=== PATIENT | female | born 1990 | race Two or more races ===

== ENCOUNTER 2020-07-28 17:48 | Observation (INO) ==
[2020-07-28] MEDS ORDERED: SODIUM CHLORIDE 0.9% 1000ML 1,000 ML IV ONE (18:15)
--- NOTE | 2020-07-28 18:29 | Emergency Department Note ---
History of Present Illness General Chief complaint: Vaginal Bleeding Stated complaint: SOB, LOW HEMOGLOBIN, REF BY [facility] Time Seen by Provider: 07/28/20 18:04 History of Present Illness Provider complaint: Vaginal bleeding Onset (ago): week(s) (6) Location: genitals Current Pain Intensity: 0 Relieved By: + none Exacerbated By: + none Associated symptoms: + shortness of breath, + syncope and + weakness; no chest pain, no cough, no fever/chills and no headaches 29-year-old female presents emergency department for vaginal bleeding. Patient states she has been having vaginal bleeding for the last 6 weeks. She reports increased lethargy and shortness of breath. Patient states she went to [facility] today and had blood work done which showed a hemoglobin of 7 and she was told to come to the emergency department for transfusion and evaluation. Patient does report increased lethargy and states she did blackout a few weeks ago because she was so tired. No chest pain. Patient is not on any blood thinners. Patient states she recently took a test and was found to be not . 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 Home Medications Medication Instructions Recorded Confirmed Type folic acid 0.4 mg PO DAILY 07/28/20 07/28/20 History Allergies Allergy/AdvReac Type Severity Reaction Status Date / Time No Known Allergies Allergy Unverified 07/28/20 20:57 Past Med/Surg History Medical History (Updated 07/29/20 @ 00:59 by Akshat Graham) Beta thalassemia minor No pertinent family history Surgical History (Updated 07/28/20 @ 21:21 by Suyapa León MD) H/O oral surgery Social History (Updated 07/28/20 @ 21:21 by Suyapa León MD) Smoking Status: Never smoker Second Hand Exposure: No; Hx Alcohol Use: No Hx Substance Use: No Preferred Language: Greek Communication Ability: Effective Vice President Safety Required: No marital status: Current Living Situation: Spouse current occupational status: student current occupation: Grad student, civil engineering Feels Safe at Home: Yes Assistive Devices: None Review of Systems A total of 10 systems reviewed and were otherwise negative Physical Exam Vital Signs Vital Signs - 24 hr 07/28/20 17:50 07/28/20 20:51 Temperature 36.0 C L Temperature Source Temporal Artery Scan Pulse Rate 91 H Pulse Rate [Right Finger] 95 H Respiratory Rate 18 14 Blood Pressure 129/76 Blood Pressure [Right Arm] 151/82 H Blood Pressure Mean 93 Blood Pressure Mean [Right Arm] 105 Pulse Oximetry 100 100 Oxygen Delivery Method Room Air Room Air Sepsis Recent Fever Within 48 Hours No Sepsis New/Unexplained Change in Mental Status N/A Sepsis Action Taken by Nursing No Action Required Physical Exam GENERAL: She is oriented to person, place, and time. She appears well-developed and well-nourished. She does not appear distressed. HENT: Exam performed. -Head: Normocephalic and atraumatic. -Right Ear: External ear normal. No mastoid tenderness. -Left Ear: External ear normal. No mastoid tenderness. -Mouth/Throat: The oropharynx is clear and moist. No trismus in the jaw. No dental abscesses or uvula swelling. No oropharyngeal exudate or tonsillar abscesses. EYES: Conjunctivae and EOM are normal. Pupils are equal, round, and reactive to light. Right eye exhibits no discharge. Left eye exhibits no discharge. No scleral icterus. NECK: Normal range of motion. Neck supple. No JVD present. No spinous process tenderness present. No carotid bruit present. No rigidity. No tracheal deviation and normal range of motion present. No Brudzinski's sign and no Kernig's sign noted. CV: Normal rate, regular rhythm, normal heart sounds and intact distal pulses. There is no peripheral edema. Palpable radial pulses bue. PULM/CHEST: Effort normal and breath sounds normal. No respiratory distress. No stridor. She has no wheezes. She has no rales. -Chest Wall: She exhibits no tenderness. ABD: The abdomen is soft. Bowel sounds are normal. She has no distension. No mass is present. There is no tenderness. There is no rebound, no guarding, no Hillman's sign and no tenderness at McBurney's point. Rovsig negative MUSC/SKEL: Normal range of motion. There is no peripheral edema, tenderness or deformity. LYMPH: No cervical adenopathy. NEURO: She is alert and oriented to person, place, and time. She has normal strength. No cranial nerve deficit or sensory deficit. Coordination and gait normal. GCS eye subscore is 4. GCS verbal subscore is 5. GCS motor subscore is 6. Cerebellar tests wnl. SKIN: Skin is warm and dry. She is not diaphoretic. PSYCH: She has a normal mood and affect. Behavior is normal. Judgment and thought content normal. Course Course 1803: The patient was evaluated in room B9. A complete history and physical exam was performed Cardiac monitoring: An order was placed for continuous cardiac monitoring. The monitor shows a rate of 90 with sinus rhythm 1999: Vital signs stable. Patient's hemoglobin 6.9. Patient was consented for 2 units packed red blood cells to be transfused. Lab work is otherwise within normal limits. Ultrasound showed no abnormalities on transabdominal view. Patient was unable to tolerate endovaginal ultrasound. I did attempt to do a pelvic exam with female nursing concrete precast moulder Stacy. The patient did have clots coming out of her vagina and dried blood around her vulvar area. Patient was unable to tolerate speculum exam and started screaming in pain. We decided to defer the ultrasound for MACHINE CANDLE MOLDER to complete as the patient was in severe pain wi speculum exam. I did discuss the case with on-call MACHINE CANDLE MOLDER Dr. León who states she will be down to evaluate the patient. 2038: Vital signs stable. Patient was evaluated by Dr. León and myself and we both explained to patient that would be in her best interest to be admitted to the hospital to continue transfusion and recheck hemoglobin in the morning. Patient is in agreement. Administered Medications Medroxyprogesterone Acetate (Medroxyprogesterone Acetate 10 Mg Tab) 20 mg PO TID PIERRE Stop: 08/27/20 21:49 Last Admin: 07/28/20 22:47 Dose: 20 mg Documented by: [id number] Discontinued Medications Sodium Chloride (Nss 1000ml) 1,000 mls @ 999 mls/hr IV .Q1H1M ONE Stop: 07/28/20 19:15 Last Infusion: 07/28/20 19:23 Dose: 0 mls/hr Documented by: [id number] Admin: 07/28/20 18:29 Dose: 999 mls/hr Documented by: [id number] Sodium Chloride (Nss 1000ml) 500 mls @ 999 mls/hr IV .Q31M ONE Stop: 07/28/20 20:29 Last Infusion: 07/28/20 21:47 Dose: 0 mls/hr Documented by: [id number] Admin: 07/28/20 20:53 Dose: 999 mls/hr Documented by: [id number] Critical Care Time Critical Care Time: Yes Total Critical Care Time: 59 I have personally spent greater than 59 minutes of critical care time in the direct management of this patient. This includes bedside care, interpretation of diagnostic studies, and testing, discussion with consultants, patient, and family members, and other required patient management activities. This 59 minutes is in excess of all separately billable procedures. Medical Decision Making Laboratory Data Result diagrams: 07/28/20 18:30 07/28/20 18:30 Lab Results 07/28/20 07/28/20 07/28/20 Range/Units 18:30 18:30 18:30 WBC 12.43 H (4.8-10.8) K/uL RBC 3.73 L (4.2-5.4) M/uL Hgb 6.9 L* (12.0-16.0) g/dL Hct 23.5 L (37-47) % MCV 63.0 L (80-100) fL MCH 18.5 L (25-34) pg MCHC 29.4 L (32-36) g/dL RDW Std Deviation 41.8 (36.4-46.3) fL RDW Coeff of Kerri 18.2 H (11.5-14.5) % Plt Count 425 H (130-400) K/uL MPV 9.3 (7.4-10.4) fL Immature Gran % (Auto) 0.4 % Neut % (Auto) 59.4 % Lymph % (Auto) 33.2 % [place] % (Auto) 5.9 % Eos % (Auto) 0.9 % Baso % (Auto) 0.2 % Neut # (Auto) 7.39 H (1.4-6.5) K/uL Lymph # (Auto) 4.13 H (1.2-3.4) K/uL [place] # (Auto) 0.73 H (0.11-0.59) K/uL Eos # (Auto) 0.11 (0-0.5) K/uL Baso # (Auto) 0.02 (0-0.2) K/uL Immature Gran # (Auto) 0.05 H (0.00-0.02) K/uL Absolute Nucleated RBC 0.05 H (0-0) K/uL Nucleated RBC % (auto) 0.4 % Polychromasia 1+ Hypochromasia Present Microcytosis Present Target Cells 1+ PT 10.0 (9.0-12.0) Seconds INR 1.0 (0.9-1.1) APTT 21.9 (21.0-31.0) Seconds PTT Ratio 0.8 Sodium 136 (136-145) mmol/L Potassium 4.0 (3.5-5.1) mmol/L Chloride 107 (98-107) mmol/L Carbon Dioxide 25 (21-32) mmol/L Anion Gap 4.0 (3-11) BUN 13 (7-18) mg/dl Creatinine 0.84 (0.6-1.2) mg/dl Est Cr Clr Drug Dosing 105.5 ml/min Est GFR ( Amer) 109.6 Est GFR (Non-Af Amer) 94.6 BUN/Creatinine Ratio 15.8 (10-20) Glucose 91 (70-99) mg/dl Calcium 9.0 (8.5-10.1) mg/dl HCG, Qual (Negative) COVID-19 Eval Order SARS-CoV-2 (PCR) (Negative) Influenza Type A (PCR) (Neg) Influenza Type B (PCR) (Neg) RSV (RT-PCR) (Neg) Blood Type Blood Type Recheck Antibody Screen Crossmatch 07/28/20 07/28/20 07/28/20 Range/Units 18:30 18:30 20:40 WBC (4.8-10.8) K/uL RBC (4.2-5.4) M/uL Hgb (12.0-16.0) g/dL Hct (37-47) % MCV (80-100) fL MCH (25-34) pg MCHC (32-36) g/dL RDW Std Deviation (36.4-46.3) fL RDW Coeff of Kerri (11.5-14.5) % Plt Count (130-400) K/uL MPV (7.4-10.4) fL Immature Gran % (Auto) % Neut % (Auto) % Lymph % (Auto) % [place] % (Auto) % Eos % (Auto) % Baso % (Auto) % Neut # (Auto) (1.4-6.5) K/uL Lymph # (Auto) (1.2-3.4) K/uL [place] # (Auto) (0.11-0.59) K/uL Eos # (Auto) (0-0.5) K/uL Baso # (Auto) (0-0.2) K/uL Immature Gran # (Auto) (0.00-0.02) K/uL Absolute Nucleated RBC (0-0) K/uL Nucleated RBC % (auto) % Polychromasia Hypochromasia Microcytosis Target Cells PT (9.0-12.0) Seconds INR (0.9-1.1) APTT (21.0-31.0) Seconds PTT Ratio Sodium (136-145) mmol/L Potassium (3.5-5.1) mmol/L Chloride (98-107) mmol/L Carbon Dioxide (21-32) mmol/L Anion Gap (3-11) BUN (7-18) mg/dl Creatinine (0.6-1.2) mg/dl Est Cr Clr Drug Dosing ml/min Est GFR ( Amer) Est GFR (Non-Af Amer) BUN/Creatinine Ratio (10-20) Glucose (70-99) mg/dl Calcium (8.5-10.1) mg/dl HCG, Qual Negative (Negative) COVID-19 Eval Order SARS-CoV-2 (PCR) (Negative) Influenza Type A (PCR) (Neg) Influenza Type B (PCR) (Neg) RSV (RT-PCR) (Neg) Blood Type B Positive Blood Type Recheck B Positive Antibody Screen NEGATIVE Crossmatch See Detail 07/28/20 07/28/20 Range/Units 20:51 20:51 WBC (4.8-10.8) K/uL RBC (4.2-5.4) M/uL Hgb (12.0-16.0) g/dL Hct (37-47) % MCV (80-100) fL MCH (25-34) pg MCHC (32-36) g/dL RDW Std Deviation (36.4-46.3) fL RDW Coeff of Kerri (11.5-14.5) % Plt Count (130-400) K/uL MPV (7.4-10.4) fL Immature Gran % (Auto) % Neut % (Auto) % Lymph % (Auto) % [place] % (Auto) % Eos % (Auto) % Baso % (Auto) % Neut # (Auto) (1.4-6.5) K/uL Lymph # (Auto) (1.2-3.4) K/uL [place] # (Auto) (0.11-0.59) K/uL Eos # (Auto) (0-0.5) K/uL Baso # (Auto) (0-0.2) K/uL Immature Gran # (Auto) (0.00-0.02) K/uL Absolute Nucleated RBC (0-0) K/uL Nucleated RBC % (auto) % Polychromasia Hypochromasia Microcytosis Target Cells PT (9.0-12.0) Seconds INR (0.9-1.1) APTT (21.0-31.0) Seconds PTT Ratio Sodium (136-145) mmol/L Potassium (3.5-5.1) mmol/L Chloride (98-107) mmol/L Carbon Dioxide (21-32) mmol/L Anion Gap (3-11) BUN (7-18) mg/dl Creatinine (0.6-1.2) mg/dl Est Cr Clr Drug Dosing ml/min Est GFR ( Amer) Est GFR (Non-Af Amer) BUN/Creatinine Ratio (10-20) Glucose (70-99) mg/dl Calcium (8.5-10.1) mg/dl HCG, Qual (Negative) COVID-19 Eval Order [facility]FluRsv at [facility] SARS-CoV-2 (PCR) NEGATIVE (Negative) Influenza Type A (PCR) Negative (Neg) Influenza Type B (PCR) Negative (Neg) RSV (RT-PCR) Negative (Neg) Blood Type Blood Type Recheck Antibody Screen Crossmatch Imaging Data Radiologist's Impression: EXAMINATION: PELVIC ULTRASOUND CLINICAL HISTORY: vaginal bleeding COMPARISON STUDY: FINDINGS: Transabdominal scanning was performed. The patient was unable to tolerate endovaginal scanning The uterus measured 6.9 x 3.6 x 4.7 cm. The endometrial stripe measured 8 mm. The right ovary measured 3 7 x 16 x 19 mm. The left ovary measured 31 x 19 x 26 mm. There was no evidence of pathologic free pelvic fluid. IMPRESSION: 1. Normal transabdominal pelvic ultrasound. ACT 112: Negative or not required by law. Electronically signed by: Subhahs Rai M.D. 07/28/2020 7:41 PM Dictated: 07/28/201939Transcribed: 07/28/201939 ECG Data Indication: + other (arrythmia) Rate (beats per minute): 93 Rhythm: + normal sinus ECG Intervals/blocks: + Normal QRS, + Normal OH and + Normal QT-c ECG ST segments: + Normal ST segments [facility] Narrative 1804: The patient was evaluated in room B9. A complete history and physical exam was performed Cardiac monitoring: An order was placed for continuous cardiac monitoring. The monitor shows a rate of 90 with sinus rhythm 1999: Vital signs stable. Patient's hemoglobin 6.9. Patient was consented for 2 units packed red blood cells to be transfused. Lab work is otherwise within normal limits. Ultrasound showed no abnormalities on transabdominal view. Patient was unable to tolerate endovaginal ultrasound. I did attempt to do a pelvic exam with female nursing concrete precast moulder Stacy. The patient did have clots coming out of her vagina and dried blood around her vulvar area. Patient was un able to tolerate speculum exam and started screaming in pain. We decided to defer the ultrasound for MACHINE CANDLE MOLDER to complete as the patient was in severe pain with speculum exam. I did discuss the case with on-call MACHINE CANDLE MOLDER Dr. León who states she will be down to evaluate the patient. 2038: Vital signs stable. Patient was evaluated by Dr. León and myself and we both explained to patient that would be in her best interest to be admitted to the hospital to continue transfusion and recheck hemoglobin in the morning. Patient is in agreement. Impression & Plan Vaginal bleeding, Anemia Discharge Plan Visit Data Chief Complaint: Vaginal Bleeding Stated Complaint: SOB, LOW HEMOGLOBIN, REF BY [facility] ED Provider: Akshat Graham Discharge Problem: Vaginal bleeding, Anemia Patient Disposition: Admitted As Inpatient Discharge Instructions Interventions: ED Discharge Assessment Last Done: 07/28/20 22:03 Discharge Problem: Anemia Qualifiers: Iron deficiency anemia type: chronic blood loss
[2020-07-28 18:53] LABS: Partial Thromboplastin Ratio 0.8; Partial Thromboplastin Time 21.9 Seconds (21.0-31.0)
[2020-07-28 18:57] LABS: BUN Creatinine Ratio 15.8 (10-20); Creatinine Clr Calc Pharmacy 105.5 ml/min; Est GFR (African American) 109.6; Est GFR (Non-African American) 94.6; Hematocrit (blood only) 23.5 % (37-47); Hemoglobin 6.9 g/dL (12.0-16.0); Mean Corpuscular Hemoglobin 18.5 pg (25-34); Mean Corpuscular Hgb Conc 29.4 g/dL (32-36); Mean Platelet Volume 9.3 fL (7.4-10.4); Nucleated RBC # (auto) 0.05 K/uL (0-0); Nucleated RBC % (auto) 0.4 %; Platelet Count 425 K/uL (130-400); RDW Coefficient of Variation 18.2 % (11.5-14.5); RDW Standard Deviation 41.8 fL (36.4-46.3); Red Blood Count 3.73 M/uL (4.2-5.4); White Blood Count 12.43 K/uL (4.8-10.8)
[2020-07-28] MEDS ORDERED: SODIUM CHLORIDE 0.9% 250 ML IV PRN (18:59)
[2020-07-28 19:01] LABS: Basophils # (auto) 0.02 K/uL (0-0.2); Basophils % (auto) 0.2 %; Eosinophils # (auto) 0.11 K/uL (0-0.5); Eosinophils % (auto) 0.9 %; Hypochromasia Present; Immature Granulocytes # (auto) 0.05 K/uL (0.00-0.02); Immature Granulocytes % (auto) 0.4 %; Lymphocytes # (auto) 4.13 K/uL (1.2-3.4); Lymphocytes % (auto) 33.2 %; Microcytosis Present; Monocytes # (auto) 0.73 K/uL (0.11-0.59); Monocytes % (auto) 5.9 %; Neutrophils # (auto) 7.39 K/uL (1.4-6.5); Neutrophils % (auto) 59.4 %; Polychromasia 1+; Target Cells 1+
--- NOTE | 2020-07-28 19:43 | Ultrasound Report ---
EXAMINATION: PELVIC ULTRASOUND CLINICAL HISTORY: vaginal bleeding COMPARISON STUDY: FINDINGS: Transabdominal scanning was performed. The patient was unable to tolerate endovaginal scanning The uterus measured 6.9 x 3.6 x 4.7 cm. The endometrial stripe measured 8 mm. The right ovary measured 3 7 x 16 x 19 mm. The left ovary measured 31 x 19 x 26 mm. There was no evidence of pathologic free pelvic fluid. IMPRESSION: 1. Normal transabdominal pelvic ultrasound. ACT 112: Negative or not required by law. Electronically signed by: Subhash Rai M.D. 07/28/2020 7:41 PM
[2020-07-28] MEDS ORDERED: SODIUM CHLORIDE 0.9% 1000ML 500 ML IV ONE (19:59)
[2020-07-28 20:39] LABS: Pregnancy Test, Serum Negative (Negative)
--- NOTE | 2020-07-28 21:30 | History & Physical Report ---
Date of Service July 28, 2020 Assessment & Plan (1) Vaginal bleedin29 y/o G0 admitted for observation for acute blood loss anemia secondary to vaginal bleeding, likely anovulatory -VSS -Anemia - 2u pRBC initiated by ED, will continue and repeat CBC in AM to ensure bleeding not significantly worsening. Discussed provera 20mg TID to try to improve vaginal bleeding, pt amenable so will start now. Pt notes that she is planning on following up with [facility] for her coding team lead care. Will keep NPO overnight, IVF in the meantime. Likely able to be d/c'd home in the morning as long CBC is stable. Exam not indicative of acute intervention currently -Ample time given for questions, answered to her apparent satisfaction History of Present Illness Chief Complaint: Anemia, Vaginal bleeding Primary Care Provider: [facility] 29 y/o G0 w/ LMP 06/20 presented to the ED earlier this evening as referral from [facility]. 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 Prior to 6 mo ago, noted q40d x 6d normal periods, normal bleeding. Over last 6 months, have become more irregular. She did not have period November and December, had month long period in January. No period February, did a provera withdrawal in March and had period then. Spotting at end of May, then began bleeding 06/20 and has not stopped since then. The periods are heavier now than before, at its heaviest is changing regular pad q3-4 hrs. Now it is improved to q5-6 hours. This past Sunday, she had an episode where she felt like the world went black and and TAYLOR. Denies lightheadedness, dizziness. Does note some SOB w/ activity, however this is actually chronic for her as she has beta thalassemia minor and normal has H/H of 9-10. This has never happened before. Given these symptoms, saw PROCESS CAMERA OPERATOR at [facility] today where they did labs and her Hemoglobin was 7, preg test was negative and was instructed to come to the ER. In the ER, pt continues to deny lightheadedness, dizziness, chest pain, SOB. H/H was stable from reported prior lab, pelvic US was normal however was only abdominal due to poor pt tolerance. Past CHANNEL SALES DIRECTOR Hx: G0 periods as described above denies hx STI Unsure if ever had pap, but states she has seen few gyns in [place] before Allergies Allergy/AdvReac Type Severity Reaction Status Date / Time No Known Allergies Allergy Unverified 07/28/20 20:57 Home Medications Medication Instructions Recorded Confirmed Type folic acid 0.4 mg PO DAILY 07/28/20 07/28/20 History Patient History Medical History (Updated 07/28/20 @ 21:24 by Suyapa León MD) Beta thalassemia minor No pertinent family history Surgical History (Updated 07/28/20 @ 21:21 by Suyapa León MD) H/O oral surgery Social History (Updated 07/28/20 @ 21:21 by Suyapa León MD) Smoking Status: Never smoker Hx Alcohol Use: No Hx Substance Use: No Preferred Language: Bermudian marital status: current occupational status: student current occupation: Grad student, civil engineering Feels Safe at Home: Yes Review of Systems All systems reviewed & are unremarkable except as noted in HPI & below Physical Exam Constitutional: WD/WN, vitals as above Respiratory: normal respiratory effort; no respiratory distress and no labored breathing Gastrointestinal (Abdomen): Inspection/Auscultation: abdomen normal to inspection; abdomen not distended Percussion/Palpation: abdomen soft; abdomen nontender, no guarding and abdomen not rigid Psychiatric: A+Ox3, euthymic affect Genitourinary: Normal external genitalia Vaginal mucosa wnl Cervix visualized w/o lesions or masses, small amount of blood noted coming out of the os w/ valsalva Uterus nontender on exam, but limited by pt tolerance Results & Data ([facility]) Vital Signs (Past 12 Hours) Vital Signs Temp Pulse Pulse Resp BP BP Pulse Ox 07/28/20 20:51 95 H 14 151/82 H 100 07/28/20 17:50 96.8 F L 91 H 18 129/76 100 Laboratory Results 07/28/20 07/28/20 07/28/20 Range/Units 20:51 20:51 20:40 WBC (4.8-10.8) K/uL RBC (4.2-5.4) M/uL Hgb (12.0-16.0) g/dL Hct (37-47) % MCV (80-100) fL MCH (25-34) pg MCHC (32-36) g/dL RDW Std Deviation (36.4-46.3) fL RDW Coeff of Kerri (11.5-14.5) % Plt Count (130-400) K/uL MPV (7.4-10.4) fL Immature Gran % (Auto) % Neut % (Auto) % Lymph % (Auto) % [place] % (Auto) % Eos % (Auto) % Baso % (Auto) % Neut # (Auto) (1.4-6.5) K/uL Lymph # (Auto) (1.2-3.4) K/uL [place] # (Auto) (0.11-0.59) K/uL Eos # (Auto) (0-0.5) K/uL Baso # (Auto) (0-0.2) K/uL Immature Gran # (Auto) (0.00-0.02) K/uL Absolute Nucleated RBC (0-0) K/uL Nucleated RBC % (auto) % Polychromasia Hypochromasia Microcytosis Target Cells PT (9.0-12.0) Seconds INR (0.9-1.1) APTT (21.0-31.0) Seconds PTT Ratio Sodium (136-145) mmol/L Potassium (3.5-5.1) mmol/L Chloride (98-107) mmol/L Carbon Dioxide (21-32) mmol/L Anion Gap (3-11) BUN (7-18) mg/dl Creatinine (0.6-1.2) mg/dl Est Cr Clr Drug Dosing ml/min Est GFR ( Amer) Est GFR (Non-Af Amer) BUN/Creatinine Ratio (10-20) Glucose (70-99) mg/dl Calcium (8.5-10.1) mg/dl HCG, Qual (Negative) COVID-19 Eval Order CovFluRsv at [facility] SARS-CoV-2 (PCR) Pending Influenza Type A (PCR) Pending Influenza Type B (PCR) Pending RSV (RT-PCR) Pending Blood Type Blood Type Recheck B Positive Antibody Screen Crossmatch 07/28/20 07/28/20 07/28/20 Range/Units 18:30 18:30 18:30 WBC (4.8-10.8) K/uL RBC (4.2-5.4) M/uL Hgb (12.0-16.0) g/dL Hct (37-47) % MCV (80-100) fL MCH (25-34) pg MCHC (32-36) g/dL RDW Std Deviation (36.4-46.3) fL RDW Coeff of Kerri (11.5-14.5) % Plt Count (130-400) K/uL MPV (7.4-10.4) fL Immature Gran % (Auto) % Neut % (Auto) % Lymph % (Auto) % [place] % (Auto) % Eos % (Auto) % Baso % (Auto) % Neut # (Auto) (1.4-6.5) K/uL Lymph # (Auto) (1.2-3.4) K/uL [place] # (Auto) (0.11-0.59) K/uL Eos # (Auto) (0-0.5) K/uL Baso # (Auto) (0-0.2) K/uL Immature Gran # (Auto) (0.00-0.02) K/uL Absolute Nucleated RBC (0-0) K/uL Nucleated RBC % (auto) % Polychromasia Hypochromasia Microcytosis Target Cells PT (9.0-12.0) Seconds INR (0.9-1.1) APTT (21.0-31.0) Seconds PTT Ratio Sodium 136 (136-145) mmol/L Potassium 4.0 (3.5-5.1) mmol/L Chloride 107 (98-107) mmol/L Carbon Dioxide 25 (21-32) mmol/L Anion Gap 4.0 (3-11) BUN 13 (7-18) mg/dl Creatinine 0.84 (0.6-1.2) mg/dl Est Cr Clr Drug Dosing 105.5 ml/min Est GFR ( Amer) 109.6 Est GFR (Non-Af Amer) 94.6 BUN/Creatinine Ratio 15.8 (10-20) Glucose 91 (70-99) mg/dl Calcium 9.0 (8.5-10.1) mg/dl HCG, Qual Negative (Negative) COVID-19 Eval Order SARS-CoV-2 (PCR) Influenza Type A (PCR) Influenza Type B (PCR) RSV (RT-PCR) Blood Type B Positive Blood Type Recheck Antibody Screen NEGATIVE Crossmatch See Detail 07/28/20 07/28/20 Range/Units 18:30 18:30 WBC 12.43 H (4.8-10.8) K/uL RBC 3.73 L (4.2-5.4) M/uL Hgb 6.9 L* (12.0-16.0) g/dL Hct 23.5 L (37-47) % MCV 63.0 L (80-100) fL MCH 18.5 L (25-34) pg MCHC 29.4 L (32-36) g/dL RDW Std Deviation 41.8 (36.4-46.3) fL RDW Coeff of Kerri 18.2 H (11.5-14.5) % Plt Count 425 H (130-400) K/uL MPV 9.3 (7.4-10.4) fL Immature Gran % (Auto) 0.4 % Neut % (Auto) 59.4 % Lymph % (Auto) 33.2 % [place] % (Auto) 5.9 % Eos % (Auto) 0.9 % Baso % (Auto) 0.2 % Neut # (Auto) 7.39 H (1.4-6.5) K/uL Lymph # (Auto) 4.13 H (1.2-3.4) K/uL [place] # (Auto) 0.73 H (0.11-0.59) K/uL Eos # (Auto) 0.11 (0-0.5) K/uL Baso # (Auto) 0.02 (0-0.2) K/uL Immature Gran # (Auto) 0.05 H (0.00-0.02) K/uL Absolute Nucleated RBC 0.05 H (0-0) K/uL Nucleated RBC % (auto) 0.4 % Polychromasia 1+ Hypochromasia Present Microcytosis Present Target Cells 1+ PT 10.0 (9.0-12.0) Seconds INR 1.0 (0.9-1.1) APTT 21.9 (21.0-31.0) Seconds PTT Ratio 0.8 Sodium (136-145) mmol/L Potassium (3.5-5.1) mmol/L Chloride (98-107) mmol/L Carbon Dioxide (21-32) mmol/L Anion Gap (3-11) BUN (7-18) mg/dl Creatinine (0.6-1.2) mg/dl Est Cr Clr Drug Dosing ml/min Est GFR ( Amer) Est GFR (Non-Af Amer) BUN/Creatinine Ratio (10-20) Glucose (70-99) mg/dl Calcium (8.5-10.1) mg/dl HCG, Qual (Negative) COVID-19 Eval Order SARS-CoV-2 (PCR) Influenza Type A (PCR) Influenza Type B (PCR) RSV (RT-PCR) Blood Type Blood Type Recheck Antibody Screen Crossmatch Diagnostic Findings FINDINGS: Transabdominal scanning was performed. The patient was unable to tolerate endovaginal scanning The uterus measured 6.9 x 3.6 x 4.7 cm. The endometrial stripe measured 8 mm. The right ovary measured 3 7 x 16 x 19 mm. The left ovary measured 31 x 19 x 26 mm. There was no evidence of pathologic free pelvic fluid. IMPRESSION: 1. Normal transabdominal pelvic ultrasound. Code Status & VTE Plan VTE Prophylaxis Plan VTE Prophylaxis will be ordered: Yes Coding Level of Care Code 73949 Office/OBS Consult Lvl 3 Diagnoses Vaginal bleeding N93.9
[2020-07-28 21:42] LABS: Influenza A virus by PCR Negative (Neg); Influenza B virus by PCR Negative (Neg); RSV by PCR Negative (Neg); SARS CoV2 RNA(COVID-19) InHosp NEGATIVE (Negative)
[2020-07-28] MEDS ORDERED: ONDANSETRON INJ 2 MG/ML 2 ML VIAL IV PRN (22:13)
[2020-07-28] MEDS ORDERED: ACETAMINOPHEN 325 MG TAB PO PRN (22:13)
[2020-07-28] MEDS ORDERED: LACTATED RINGER'S 1,000 ML IV SCH (22:13)
[2020-07-28] MEDS: medroxyPROGESTERone ACETATE 10 MG TAB PO SCH (22:47)
[2020-07-29] MEDS ORDERED: SODIUM CHLORIDE 0.9% 250 ML IV PRN (00:04)
[2020-07-29 05:49] LABS: Hematocrit (blood only) 28.9 % (37-47)
--- NOTE | 2020-07-29 07:43 | Gynecologic Progress Note ---
Date of Service July 29, 2020 Assessment & Plan (1) Vaginal bleedin29 y/o G0 admitted for observation for acute blood loss anemia secondary to vaginal bleeding, likely anovulatory -VSS -Anemia - s/p 2u pRBC, post transfusion H/H was appropriate and pt symptomatically improved. AM CBC will be drawn 4 hrs after the post-transfusion HCT. Will be able to go home as long as CBC this AM is reasonable and pt able to ambulate on her own, tolerate food. Will continue provera 20mg TID x 7d, f/u in clinic in about 1-2 wks as she now desires to f/u here -Ample time given for questions, answered to her apparent satisfaction Admission and Anticipated Discharge Date Admission Date: July 28, 2020 Subjective Doing well this AM, feels much better than last evening after 2 units. Has not gotten up yet, but says did not have to get up to change pad overnight like she has been needing to at home lately. Denies abd pain. Denies fevers, chills, n/v, TAYLOR, CP, SOB, lightheadedness/dizziness, but has not gotten up yet this morning. Examination of pad that pt has had on since coming up from ER around 11pm shows old blood, largely filled but is not soaked. Review of Systems Review of Systems: All systems reviewed & are unremarkable except as noted in HPI & below Physical Exam Constitutional: WD/WN, vitals as above Respiratory: normal respiratory effort; no respiratory distress and no labored breathing Gastrointestinal (Abdomen): Inspection/Auscultation: abdomen normal to inspection; abdomen not distended Percussion/Palpation: abdomen soft; abdomen nontender, no guarding and abdomen not rigid Psychiatric: A+Ox3, euthymic affect Results & Data ([facility]) Vital Signs (Past 12 Hours) Vital Signs Temp Pulse Pulse Pulse Resp BP BP 07/29/20 03:27 98.2 F 84 16 106/71 07/29/20 02:29 98.4 F 77 14 108/68 07/29/20 01:34 98.6 F 85 14 115/74 07/29/20 01:00 98.6 F 85 16 112/73 07/29/20 00:44 98.8 F 90 16 122/72 07/29/20 00:26 98.4 F 93 H 18 114/77 07/28/20 23:45 98.8 F 89 18 122/77 07/28/20 23:15 98.4 F 89 18 136/82 07/28/20 22:15 98.4 F 91 H 91 H 18 132/83 132/83 07/28/20 21:59 98.6 F 99 H 18 115/80 07/28/20 21:39 98.4 F 103 H 18 155/66 H 07/28/20 20:51 95 H 14 151/82 H Pulse Ox 07/29/20 03:27 99 07/29/20 02:29 100 07/29/20 01:34 99 07/29/20 01:00 100 07/29/20 00:44 100 07/29/20 00:26 99 07/28/20 23:45 99 07/28/20 23:15 100 07/28/20 22:15 100 07/28/20 21:59 100 07/28/20 21:39 95 07/28/20 20:51 100 PG Care Time/CCT Total # of Minutes Spent Total Time Spent with Patient: Total time spent is greater than 50% in coordination of care (as documented) at patient's floor/unit and/or counseling patient: Coding Level of Care Code 92320 OBS Care - Discharge Diagnoses Vaginal bleeding N93.9
[2020-07-29 08:34] LABS: Hematocrit (blood only) 30.8 % (37-47); Hemoglobin 9.6 g/dL (12.0-16.0); Mean Corpuscular Hemoglobin 21.5 pg (25-34); Mean Corpuscular Hgb Conc 31.2 g/dL (32-36); Mean Corpuscular Volume 69.1 fL (80-100); Mean Platelet Volume 9.8 fL (7.4-10.4); Platelet Count 361 K/uL (130-400); RDW Coefficient of Variation 22.8 % (11.5-14.5); RDW Standard Deviation 56.7 fL (36.4-46.3); Red Blood Count 4.46 M/uL (4.2-5.4); White Blood Count 11.41 K/uL (4.8-10.8)
[2020-07-29] MEDS: medroxyPROGESTERone ACETATE 10 MG TAB PO SCH (08:44)
--- NOTE | 2020-07-29 16:35 | Electrocardiogram Report ---
Test Reason : Blood Pressure : / mmHG Vent. Rate : 093 BPM Atrial Rate : 093 BPM P-R Int : 102 ms QRS Dur : 082 ms QT Int : 346 ms P-R-T Axes : 049 049 031 degrees QTc Int : 430 ms Sinus rhythm with short MA Nonspecific ST abnormality Abnormal ECG No previous ECGs available Confirmed by Daren Capps ([id number]) on 07/29/2020 4:35:29 PM Referred By: [facility] Confirmed By:Guanako Capps
--- NOTE | 2020-08-01 20:04 | Discharge Summary ---
Date of Service August 01, 2020 Admission HPI Per Admitting Provider 29 y/o G0 w/ LMP 06/20 presented to the ED earlier this evening as referral from [facility]. 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 Prior to 6 mo ago, noted q40d x 6d normal periods, normal bleeding. Over last 6 months, have become more irregular. She did not have period November and December, had month long period in January. No period February, did a provera withdrawal in March and had period . Spotting at end of May, then began bleeding 06/20 and has not stopped since then. The periods are heavier now than before, at its heaviest is changing regular pad q3-4 hrs. Now it is improved to q5-6 hours. This past Sunday, she had an episode where she felt like the world went black and and TAYLOR. Denies lightheadedness, dizziness. Does note some SOB w/ activity, however this is actually chronic for her as she has beta thalassemia minor and normal has H/H of 9-10. This has never happened before. Given these symptoms, saw SE[facility] MACH[facility] OPERATOR at [facility] today where they did labs and her Hem oglobin was 7, preg test was negative and was instructed to come to the ER. In the ER, pt continues to deny lightheadedness, dizziness, chest pain, SOB. H/H was stable from reported prior lab, pelvic US was normal however was only abdominal due to poor pt tolerance. Past [employer] SUPERVISOR Hx: G0 periods as described above denies hx STI Unsure if ever had pap, but states she has seen few gyns in [place] before Admission Exam (Per Admitting) Constitutional WD/WN, vitals as above Respiratory normal respiratory effort; no respiratory distress and no labored breathing Gastrointestinal (Abdomen) Inspection/Auscultation: abdomen normal to inspection; abdomen not distended Percussion/Palpation: abdomen soft; abdomen nontender, no guarding and abdomen not rigid Psychiatric A+Ox3, euthymic affect Discharge Data Consultations 07/28/20 20:39 ED Decision to Admit Stat Hospital Course (1) Vaginal bleeding: Pt received 2 units of pRBCs. Immediate post-transfusion and AM CBC were wnl. The patient tolerated provera 20mg x 2 doses. She will continue provera 20mg TID for a total of 7d, f/u in clinic in about 1-2 wks as she now desires to f/u here. She was able to ambulate w/o difficulty and tolerate PO after transfusion and stable for discharge Coding Level of Care Code 22631 OBS Care - Discharge Diagnoses Vaginal bleeding N93.9
== END 2020-07-29 09:40 | disposition home or self-care (01) ==
LOC: 4N 17:48 → ED 17:48 → 4N 22:03